=== PATIENT | male | born 1995 | race Two or more races ===

== ENCOUNTER 2020-09-22 13:52 | Emergency (ER) | payer MEDICARE, MEDICAID ==
[~2020-09-22] VITALS: Ht 170.2 cm; Wt 86.1 kg
[2020-09-22 13:56] VITALS: BP 124/73
--- NOTE | 2020-09-22 14:05 | NUR ---
THIS IS A 25 YEAR OLD MALE WHO C.O "MY R KNEE HAS BEEN HURTING FOR 2 WEEKS AND TODAY THE PAIN IS JUST GETTING WORSE. I FELL ON IT LIKE 2 WEEKS AGO."
[2020-09-22] MEDS ORDERED: HYDROcodone/APAP 5/325 TABLET ONE (14:24)
[2020-09-22] MEDS ORDERED: HYDROcodone/APAP 5/325 TABLET PO PRN (14:30)
--- NOTE | 2020-09-22 15:30 | NUR ---
Patient/Caregiver given discharge instructions and they have confirmed that they understand the instructions. Patient ambulatory with steady gait. NAD, all questions answered appropriately, denies additional needs at this time. No personal belongings left in room after discharge.
== END 2020-09-22 15:31 | disposition home or self-care (01) ==
LOC: ED 15:02
DX: S80.01XA Contusion of right knee, initial encounter (principal); W01.0XXA Fall on same level from slipping, tripping and stumbling without subsequent striking against object, initial encounter; Y93.89 Activity, other specified; Y92.89 Other specified places as the place of occurrence of the external cause; Y99.8 Other external cause status
CPT/HCPCS: 29505; 99283

== ENCOUNTER 2020-09-29 12:21 | Emergency (ER) | payer MEDICAID, MEDICARE ==
[~2020-09-29] VITALS: Ht 167.6 cm; Wt 82.9 kg
[2020-09-29 12:22] VITALS: BP 118/69
== END 2020-09-29 13:33 | disposition home or self-care (01) ==
LOC: ED 13:15
DX: M25.561 Pain in right knee (principal)
CPT/HCPCS: 99283